=== PATIENT | female | born 1965 | race Caucasian/White ===

== ENCOUNTER 2017-08-05 13:18 | Day surgery (SDC) | payer OTHER ==
[~2017-08-05 13:18] MED LIST: ONDANSETRON 4 MG INJ
[2017-08-05] MEDS ORDERED: LIDOCAINE 1%/EPI 30 ML INJ (16:33)
[2017-08-05] MEDS ORDERED: MIDAZOLAM 1 MG/ML 2 ML INJ (16:48)
[2017-08-05] MEDS ORDERED: FENTAnyl 50 MCG/ML VIAL (16:48)
[2017-08-05] MEDS ORDERED: AMPICILLIN/SULB 3 GM/NS (PMX) 100 ML IVPB (17:08)
[2017-08-05] MEDS: BUPIVACAINE 0.5%/EPI (SDV) 30 ML INJ INJ (17:20)
[2017-08-05] MEDS ORDERED: NEOSTIGMINE 3 MG/3 ML SYRINGE (17:29)
[2017-08-05] MEDS ORDERED: PROPOFOL 20 ML (17:29)
[2017-08-05] MEDS ORDERED: ROCURONIUM 50 MG INJ (17:29)
[2017-08-05] MEDS ORDERED: GLYCOPYRROLATE 0.4 MG INJ (17:29)
[2017-08-05] MEDS ORDERED: LIDOCAINE 2% (SDV) 5 ML INJ (17:29)
[2017-08-05] MEDS ORDERED: DIPHENHYDRAMINE 50 MG INJ IV (18:00)
[2017-08-05] MEDS ORDERED: MEPERIDINE 25 MG INJ IV (18:00)
[2017-08-05] MEDS ORDERED: LABETALOL HCL 20MG INJ IV (18:00)
[2017-08-05] MEDS ORDERED: ONDANSETRON 4 MG INJ IV (18:00)
[2017-08-05] MEDS ORDERED: FENTAnyl 50 MCG/ML VIAL IV (18:00)
[2017-08-05] MEDS ORDERED: HYDROmorphONE (0.2 MG/ML) 10ML SYG IV ×2 (18:00)
== END 2017-08-05 18:42 | disposition home or self-care (01) ==
LOC: SDS 13:18
DX: K13.70 Unspecified lesions of oral mucosa (principal); C11.3 Malignant neoplasm of anterior wall of nasopharynx; C09.9 Malignant neoplasm of tonsil, unspecified; I10 Essential (primary) hypertension; E03.9 Hypothyroidism, unspecified
CPT/HCPCS: 42100; 84703; 87075; 87102; 87116; 88305; 88341; 88342